=== PATIENT | male | born 1965 | race Caucasian/White ===

== ENCOUNTER 2024-12-07 18:30 | Inpatient (IN) | payer MEDICAID ==
[~2024-12-07] VITALS: Ht 152.4 cm; Wt 54.0 kg
[2024-12-07 20:00] VITALS: BP 92/61; TEMP 97.3
[2024-12-07] MEDS ORDERED: DEXTROSE 50%-WATER 50 ML DISP.SYRIN IV PRN (22:00)
[2024-12-07] MEDS ORDERED: BLOOD SUGAR DIAGNOSTIC 1 EACH STRIP IN SCH (22:00)
[2024-12-07] MEDS: LANOLIN/MIN OIL/PETROLAT,WHT 3.5 GM TUBE RIGHTEYE SCH (22:00)
[2024-12-07] MEDS: BLOOD SUGAR DIAGNOSTIC 1 EACH STRIP IN SCH (22:38)
[2024-12-07] MEDS: ATORVASTATIN 40 MG TABLET PO SCH (22:42)
[2024-12-07 23:35] VITALS: BP 102/57; TEMP 97.7; O2SAT 99
[2024-12-08] VITALS (8 sets, daily range): BP systolic 87–102; BP diastolic 53–66; TEMP 97.5–98.1; O2SAT 93–100
[2024-12-08] MEDS: INSULIN REGULAR, HUMAN 100 UNIT/ML 3 ML VIAL SQ PRN (06:12)
[2024-12-08 06:54] LABS: INR 1.08 (0.91-1.10); PARTIAL THROMBOPLASTIN TIME 27.6 SEC (24.3-34.3); PROTHROMBIN TIME 11.4 SECS (9.2-11.1)
[2024-12-08 07:02] LABS: BASOPHILS % (AUTO) 0.1 % (0.0-2.0); EOSINOPHILS # (AUTO) 0.2 K/uL (0.0-0.7); EOSINOPHILS % (AUTO) 3.9 % (0.0-6.0); HEMATOCRIT 42 % (39-51); HEMOGLOBIN 14.4 g/dL (13.5-17.5); LYMPHOCYTES # (AUTO) 1.3 K/uL (0.8-4.8); LYMPHOCYTES % (AUTO) 29.8 % (20.0-44.0); MEAN CORPUSCULAR HEMOGLOBIN 33 PG (26.0-33.0); MEAN CORPUSCULAR HGB CONC 34 g/dl (31.0-36.0); MEAN CORPUSCULAR VOLUME 96 fL (80-96); MONOCYTES # (AUTO) 0.4 K/uL (0.1-1.30); MONOCYTES % (AUTO) 9.3 % (2.0-12.0); NEUTROPHILS # (AUTO) 2.4 K/uL (1.8-8.9); NEUTROPHILS % (AUTO) 56.9 % (43.0-81.0); PLATELET COUNT (AUTO) 226 K/uL (150-450); RED BLOOD CELL COUNT(AUTO) 4.42 MIL/uL (4.5-6.0); RED CELL DISTRIBUTION WIDTH 14.9 % (11.5-15.0); WHITE BLOOD COUNT (AUTO) 4.3 K/uL (4.3-11.0)
[2024-12-08 07:07] LABS: ALBUMIN 2.8 g/dL (3.4-5.0); BILIRUBIN,TOTAL 0.5 mg/dL (0.2-1.0); CALCIUM, SERUM 8.3 mg/dL (8.5-10.1); CREATININE 0.6 mg/dL (0.6-1.3); POTASSIUM 3.8 mmol/L (3.5-5.1); TOTAL PROTEIN, SERUM 6.5 g/dL (6.4-8.2)
[2024-12-08 07:22] LABS: THYROID STIMULATING HORMONE 0.48 uIU/mL (0.358-3.74)
[2024-12-08] MEDS ORDERED: ACET325T53 PO (09:11)
[2024-12-08] MEDS ORDERED: BICT1TAB PO (09:11)
[2024-12-08] MEDS ORDERED: MULT-594 PO (09:11)
[2024-12-08] MEDS ORDERED: EMPA1TAB24 PO (09:11)
[2024-12-08] MEDS: ASPIRIN 81 MG TAB.CHEW PO SCH (09:29)
[2024-12-08] MEDS: predniSONE 20 MG TABLET PO SCH (09:29)
[2024-12-08] MEDS: PANTOPRAZOLE 40 MG VIAL IV SCH (09:29)
[2024-12-08] MEDS ORDERED: HOME MED MISCELLANEOUS XX SCH (10:00)
[2024-12-08 15:50] LABS: THYROID STIMULATING HORMONE 0.5 uIU/mL (0.358-3.74)
[2024-12-09] VITALS: BP 95/62; TEMP 98.2; O2SAT 98
[2024-12-09 00:08] VITALS: BP 95/62; TEMP 98.2; O2SAT 98
[2024-12-09 04:00] VITALS: BP 92/60; TEMP 98; O2SAT 99
[2024-12-09 04:47] VITALS: BP 92/60; TEMP 98; O2SAT 99
[2024-12-09 07:16] LABS: ALBUMIN 2.9 g/dL (3.4-5.0); BILIRUBIN,DIRECT 0.1 mg/dL (0.0-0.2); BILIRUBIN,TOTAL 0.5 mg/dL (0.2-1.0); TOTAL PROTEIN, SERUM 6.6 g/dL (6.4-8.2)
[2024-12-09 07:30] VITALS: BP 92/61; TEMP 98.4; O2SAT 99
[2024-12-09 08:00] VITALS: BP 92/61; TEMP 98.4; O2SAT 99
[2024-12-09] MEDS: BIKTARVY 50-200-25 MG TABLET NF PO SCH (08:11)
[2024-12-09] MEDS: PANTOPRAZOLE 40 MG TABLET.DR PO SCH (08:38)
[2024-12-09] MEDS ORDERED: ASPI-1169 PO (10:04)
[2024-12-09] MEDS ORDERED: ATOR40TA PO (10:04)
[2024-12-09] MEDS ORDERED: PRED20TA PO (10:04)
== END 2024-12-09 12:30 | disposition home or self-care (01) | DRG 48 ==
LOC: TELE1 18:59 → TELE 23:47
PROVIDERS: ATTEND Internal Medicine
DX: G51.0 Bell's palsy (principal); E03.9 Hypothyroidism, unspecified; E11.9 Type 2 diabetes mellitus without complications; H54.8 Legal blindness, as defined in USA; I10 Essential (primary) hypertension; Z79.82 Long term (current) use of aspirin; Z79.899 Other long term (current) drug therapy
CPT/HCPCS: 36415; 70551-TC; 76700-TC; 80053-TC; 80061-TC; 80076-TC; 82607-TC; 82962-TC; 83921; 84425; 84443-TC; 85025-TC; 85730-TC; 87081-TC; 92521; 92526; 92611-TC; 93307-TC; 97110-TC; 97112-TC; 97116-TC; 97530-TC; 97535-TC; G0378; J1815; J2470